=== PATIENT | male | born 1995 | race Two or more races ===

== ENCOUNTER 2024-08-09 02:49 | Emergency (ER) | payer MEDICAID, SELFPAY ==
[2024-08-09 02:56] VITALS: BMI 23.5
[2024-08-09 03:02] VITALS: BP 151/94; PULSE 87; RESP 19; TEMP 37.3; O2SAT 99
--- NOTE | 2024-08-09 03:11 | PD.EDADULT ---
ED General RME/HPI General Chief complaint: General Adult/Misc Complain Stated complaint: NOT FEELING GOOD Time Seen by Provider: 08/09/24 03:47 Arrival date/time: 08/09/24 02:49 RME / HPI RME / HPI narrative: Patient is 28 years old male with no significant past medical history presented to the ED complaining of spacing out . He reports that approximately at 2 AM today he was cleaning his room when he fell strange like spacing out. He cannot fully explain or describe what he feels. He felt he might pass out and decided to come to the ED waiting room so if he passed out he will pass out in the hospital and can get immediate help. He reports anxiety but no depression. He denies any dizziness, headache, change in vision or hearing, hallucinations, chest pain, fever or chills. He previously was seen in the ED due to numbness in his upper extremity which resolved by itself. He never had seizures before. He denies using illicit drugs, smoking tobacco or drinking alcohol. Related Data Home Medications ?Medication ?Instructions ?Recorded ?Confirmed No Known Home Medications 07/08/22 07/08/22 Allergies Allergy/AdvReac Type Severity Reaction Status Date / Time No Known Allergies Allergy Verified 04/21/23 18:05 Review of Systems Review of Systems Systems Reviewed: All systems reviewed, normal except as documented ED Exam Narrative Physical exam: Gen: Well-developed and well-nourished male. HEENT: NCAT, PERRLA, EOMI, MMM, anicteric conjunctivae. CVS: normal S1 and S2. RRR. No M/R/G. Resp: CTA B/L. No rhonchi, rales, crackles or wheezing. Abd: soft, non-tender, non-distended. BS+ in all 4 quadrants. MSK: Good ROM in BUE & BLE. No edema or rash. Neuro: CN II-XII grossly intact. Strength 5/5 in BUE & BLE. Alert and oriented x3. Psych: Appears anxious. Course Quality Measures none Orders Category Date Time Status CBC Stat Lab 08/09/24 03:33 Completed CMP [Comprehensive Metabolic Panel] Stat Lab 08/09/24 03:33 Completed Magnesium Stat Lab 08/09/24 03:33 Completed TSH [Thyroid Stimulating Hormone] Stat Lab 08/09/24 03:33 Completed Vital Signs Vital signs: Vital Signs Temperature 99.2 F 08/09/24 03:02 Pulse Rate 87 08/09/24 03:02 Respiratory Rate 19 08/09/24 03:02 Blood Pressure 151/94 H 08/09/24 03:02 Pulse Oximetry (%) 99 08/09/24 03:02 Oxygen Delivery Method Room Air 08/09/24 03:02 [facility] [place] Patient data External records reviewed:: [facility] previous records Clinical information provided by:: patient Social determinants that could affect healthcare access:: none Patient has the following chronic illnesses:: none How is presenting disease/condition affected by chronic disease/condition?: no chronic disease Evaluation data The following diagnostics were reviewed and interpreted by me:: lab results Lab and/or radiology exams considered but not ordered:: CT head Interpretation Summary: WNL Medications Medications considered but not ordered:: Meclizine, alprazolam Medication administrations:: none Consultations Consultation(s) initiated? (list below): No Diagnosis Differential Diagnosis ED Complaint MDM: anxiety, vertigo, CVA, absent seizure Most likely diagnosis given after review of the tests above:: Anxiety Admission Indicated Admission indicated?: not indicated Explain why admission is indicated or not indicated:: Work up is negative, recommended to establish PCP and follow up. Admission Request Was there a request for admission?: No Disposition Plan Disposition Plan: Discharge Discharge Attestation Discharge Attestation: The patient and all family members were given an opportunity to ask questions and understood the discharge instructions. Discharge instructions specifically effects, indications for sooner follow up or return to the emergency department, and the expected course of current diagnosis. Patient condition: Stable Medical Decision Making Differential Diagnosis Differential Diagnosis: anxiety, vertigo, CVA, absent seizure Lab Data 08/09/24 03:33 08/09/24 03:33 Labs: Lab Results 08/09/24 Range/Units 03:33 WBC 8.9 (3.8-10.6) Thou/mm3 RBC 5.35 (4.50-5.90) Miln/mm3 Hgb 15.7 (13.5-16.0) g/dL Hct 44.6 (41.0-53.0) % MCV 83 (80-100) fL MCH 29.3 (25.0-35.0) pg MCHC 35.2 (31.0-37.0) g/dl RDW Std Deviation 36.1 (35.1-43.9) fL Plt Count 250 (140-440) Thou/mm3 Neut % (Auto) 63 (37-80) % Lymph % (Auto) 26 (10-50) % [place] % (Auto) 8 (0-12) % Eos % (Auto) 2 (0-10) % Baso % (Auto) 1 (0-2.5) % Neut # (Auto) 5.6 (1.8-7.7) Thou/mm3 Lymph # (Auto) 2.3 (1.0-4.8) Thou/mm3 [place] # (Auto) 0.7 (0.0-0.8) Thou/mm3 Eos # (Auto) 0.2 (0.0-0.5) Thou/mm3 Baso # (Auto) 0.1 (0.0-0.2) Thou/mm3 Immature Gran # (Auto) 0.02 H (0.00-0.00) Thou/mm3 Absolute Nucleated RBC 0.00 (0.00-0.00) Thou/mm3 Immature Gran % 0 (0-0) % Nucleated RBC % 0 (0) /100 WBC Sodium 138 (136-145) mMol/L Potassium 3.5 (3.4-5.1) mMol/L Chloride 105 (98-107) mMol/L Carbon Dioxide 23.9 (20.0-31.0) mMol/L Anion Gap 9 (7-16) BUN 10 (9-23) mg/dL Creatinine 0.9 (0.6-1.3) mg/dL Estim Creat Clear Calc 116.3 (>60) mL/min eGFR > 60 (60 - ) See Note BUN/Creatinine Ratio 11 L (12-20) Ratio Glucose 96 (74-106) mg/dL Calculated Osmolality 274 L (275-295) Calcium 9.7 (8.3-10.6) mg/dL Corrected Calcium 9.7 (8.5-10.1) mg/dL Magnesium 2.2 (1.6-2.6) mg/dL Total Bilirubin 1.2 (0.3-1.2) mg/dL AST 17 (0-34) U/L ALT 15 (10-49) U/L Alkaline Phosphatase 82 (46-116) U/L Total Protein 7.8 (5.7-8.2) gm/dL Albumin 5.0 (3.5-5.0) gm/dL Globulin 2.8 (2.3-3.5) gm/dL Albumin/Globulin Ratio 1.8 (1.2-2.2) TSH 1.88 (0.55-4.78) uIU/mL Discharge Plan Plan Patient Disposition: HOME (Self Care) Patient condition on transfer: Stable Prescriptions/Referrals Prescriptions/Med Rec: No Action No Known Home Medications Referrals: No Primary/Family,Physician [Primary Care Provider] - In 1 week Problem List Clinical Impression: Anxiety Patient/Caregiver Discharge Instructions Education Materials: Exercise for a Healthier Heart, 5 Steps for Eating Healthier, ED Anxiety Reaction Additional Instructions: Recommendations after ER visit: -your work up is negative today. -recommended healthy diet and regular exercises. -establish primary care physician care and follow up. -If you don't have a PCP, you can make an appointment at the [facility]: [address] [place], [place] [id number] -return to the ED if symptoms recur or worsen. Print Language: Malay Stand Alone Forms: Kitty Award Info., Patient Portal Info Letter
[2024-08-09 04:01] LABS: Basophils # (Auto) 0.1 Thou/mm3 (0.0-0.2); Basophils % (Auto) 1 % (0-2.5); Eosinophils # (Auto) 0.2 Thou/mm3 (0.0-0.5); Eosinophils % (Auto) 2 % (0-10); Hematocrit 44.6 % (41.0-53.0); Hemoglobin 15.7 g/dL (13.5-16.0); Immature Granulocytes % (Auto) 0 % (0-0); Immature Granulocytes Auto 0.02 Thou/mm3 (0.00-0.00); Lymphocytes # (Auto) 2.3 Thou/mm3 (1.0-4.8); Lymphocytes % (Auto) 26 % (10-50); Mean Corpuscular HGB Conc 35.2 g/dl (31.0-37.0); Mean Corpuscular Hemoglobin 29.3 pg (25.0-35.0); Mean Corpuscular Volume 83 fL (80-100); Monocytes # (Auto) 0.7 Thou/mm3 (0.0-0.8); Monocytes % (Auto) 8 % (0-12); Neutrophils # (Auto) 5.6 Thou/mm3 (1.8-7.7); Neutrophils % (Auto) 63 % (37-80); Nucleated Red Blood Cell % 0 /100 WBC (0); Platelet Count 250 Thou/mm3 (140-440); RDW Standard Deviation 36.1 fL (35.1-43.9); Red Blood Count 5.35 Miln/mm3 (4.50-5.90); White Blood Count 8.9 Thou/mm3 (3.8-10.6)
[2024-08-09 04:19] LABS: Alanine Aminotransferase 15 U/L (10-49); Albumin/Globulin Ratio 1.8 (1.2-2.2); Alkaline Phosphatase 82 U/L (46-116); Anion Gap 9 (7-16); Aspartate Amino Transferase 17 U/L (0-34); BUN/Creatinine Ratio 11 Ratio (12-20); Bilirubin,Total 1.2 mg/dL (0.3-1.2); Blood Urea Nitrogen 10 mg/dL (9-23); Calcium 9.7 mg/dL (8.3-10.6); Calcium (Corrected) 9.7 mg/dL (8.5-10.1); Carbon Dioxide 23.9 mMol/L (20.0-31.0); Chloride 105 mMol/L (98-107); Creatinine (Component) 0.9 mg/dL (0.6-1.3); Estimated Creatinine Clearance 116.3 mL/min (>60); Globulin 2.8 gm/dL (2.3-3.5); Glucose 96 mg/dL (74-106); Magnesium 2.2 mg/dL (1.6-2.6); Osmolality,Calculated 274 (275-295); Potassium 3.5 mMol/L (3.4-5.1); Sodium 138 mMol/L (136-145); Thyroid Stimulating Hormone 1.88 uIU/mL (0.55-4.78); Total Protein 7.8 gm/dL (5.7-8.2); eGFR > 60 See Note
[2024-08-09 04:32] VITALS: RESP 18
== END 2024-08-09 04:35 | disposition home or self-care (01) ==
PROVIDERS: Emergency Provider Student in an Organized Health Care Education/Training Program
DX: F41.9 Anxiety disorder, unspecified (principal)
CPT/HCPCS: 36415; 80053; 83735; 84443; 85025; 99283

== ENCOUNTER 2024-08-12 21:59 | Emergency (ER) | payer MEDICAID, SELFPAY ==
[2024-08-12 22:45] VITALS: BP 122/64; PULSE 104; RESP 18; TEMP 36.8; O2SAT 98; BMI 24.4
[2024-08-13] MEDS: DIAZEPAM 5 MG TABLET 10 MG PO (00:07)
[2024-08-13 00:55] VITALS: RESP 18
--- NOTE | 2024-08-13 05:08 | PD.EDANX ---
ED Anxiety RME/HPI General Chief Complaint: General Adult/Misc Complain Stated Complaint: WEAK Time Seen by Provider: 08/12/24 23:58 Arrival date/time: 08/12/24 21:59 28M with history of anxiety presents to ED with several days of spacing out, and feeling mentally weak. Patient denies SI/HI. Patient was here several days ago with unremarkable blood work. Limitations: no limitations Related Data Home Medications ?Medication ?Instructions ?Recorded ?Confirmed No Known Home Medications 07/08/22 07/08/22 Allergies Allergy/AdvReac Type Severity Reaction Status Date / Time No Known Allergies Allergy Verified 08/13/24 04:02 Review of Systems Review of Systems Systems Reviewed: All systems reviewed, normal except as documented Constitutional Constitutional: Reports system reviewed and no additional complaints, except as documented, Denies fever(s) and Denies headache(s) ENT Ears, Nose, Mouth, and Throat: Denies disequilibrium and Denies headache(s) Cardiovascular Cardiovascular: Reports system reviewed and no additional complaints, except as documented, Denies chest pain and Denies dyspnea Respiratory Respiratory: Reports system reviewed and no additional complaints, except as documented, Denies cough and Denies dyspnea Gastrointestinal Gastrointestinal: Reports system reviewed and no additional complaints, except as documented, Denies abdominal pain, Denies nausea and Denies vomiting Neurologic Neurologic: Reports system reviewed and no additional complaints, except as documented, Denies confusion, Denies disequilibrium and Denies headache(s) Psychiatric Psychiatric: Reports as per HPI, Reports anxiety and Denies confusion Past Medical History Social History SMOKING STATUS: Never smoker SUBSTANCE USE: does not use ED Exam General Limitations: Present no limitations General appearance: Present alert, in no apparent distress and anxious Head Head exam: Present atraumatic Eye Eye exam: Present normal appearance, PERRL and EOMI ENT ENT exam: Present normal exam, normal oropharynx and mucous membranes moist Neck Neck exam: Present normal inspection, full ROM and trachea midline Chest Chest inspection: Present normal inspection and symmetric chest wall rise Respiratory Respiratory exam: Present normal lung sounds bilaterally Cardiovascular Cardiovascular exam: Present regular rate, normal rhythm and normal heart sounds Abdominal Exam Abdominal exam: Present soft and normal bowel sounds Extremities Exam Extremities exam: Present normal inspection and full ROM Back Exam Back exam: Present normal inspection and full ROM Neurological Exam Neurological exam: Present alert, oriented X3 and CN II-XII intact Psychiatric Psychiatric exam: Present normal affect and normal mood Skin Skin exam: Present warm, dry, intact and normal color Course Quality Measures none Orders Category Date Time Status Diazepam [Valium] Med 08/12/24 23:59 Discontinued 10 mg PO X1 ONE Vital Signs Vital signs: Vital Signs Temperature 98.2 F 08/12/24 22:45 Pulse Rate 104 H 08/12/24 22:45 Respiratory Rate 18 08/12/24 22:45 Blood Pressure 122/64 08/12/24 22:45 Pulse Oximetry (%) 98 08/12/24 22:45 Oxygen Delivery Method Room Air 08/12/24 22:45 Anxiety MDM Narrative MDM Narrative: 28M with history of anxiety presents to ED with several days of spacing out, and feeling mentally weak. Patient denies SI/HI. Patient was here several days ago with unremarkable blood work. Physical exam reveals normal pupil response and EOM. ENT and lungs clear. Patient is afebrile, alert, but anxious. Valium improved symptoms. Patient data External records reviewed:: [facility] previous records Clinical information provided by:: patient Social determinants that could affect healthcare access:: none Patient has the following chronic illnesses:: anxiety How is presenting disease/condition affected by chronic disease/condition?: caused by Evaluation data The following diagnostics were reviewed and interpreted by me:: other (specify) (none) Lab and/or radiology exams considered but not ordered:: not ordered Interpretation Summary: n/a Medications / Prescriptions Medications or Prescriptions considered but not ordered:: ordered Medication administrations:: Medication Administration History Discontinued Medications Diazepam (Diazepam 5 Mg Tablet) 10 mg PO X1 ONE Stop: 08/13/24 00:00 Last Admin: 08/13/24 00:07 Dose: 10 mg Documented By: CVL Consultations Consultation(s) initiated? (list below): No Diagnosis Differential diagnosis anxiety: hyperventilation, panic disorder and acute anxiety Most likely diagnosis given after review of the tests above:: anxiety Admission Indicated Admission indicated?: not indicated Admission Request Was there a request for admission?: No Disposition Plan Disposition Plan: Discharge Discharge Attestation Discharge Attestation: The patient and all family members were given an opportunity to ask questions and understood the discharge instructions. Discharge instructions specifically effects, indications for sooner follow up or return to the emergency department, and the expected course of current diagnosis. Patient condition: Stable Discharge Plan Plan Patient Disposition: HOME (Self Care) Disposition Comment: Stable Prescriptions/Referrals Prescriptions/Med Rec: No Action No Known Home Medications Referrals: No Primary/Family,Physician [Primary Care Provider] - In 1 week Problem List Clinical Impression: Anxiety Patient/Caregiver Discharge Instructions Education Materials: Your Body's Response to Anxiety, Anxiety Disorders Tx Therapy Additional Instructions: Please follow-up with PCP within 24-48 hours and return immediately if symptoms worsen. Print Language: Ecuadorean Stand Alone Forms: Patient Portal Info Letter MEGHAN/KAILEE Supervising Physician MEGHAN/KAILEE Supervising Physician: Dr. Ortega
== END 2024-08-13 00:56 | disposition home or self-care (01) ==
PROVIDERS: Emergency Provider Emergency Medicine
DX: F41.9 Anxiety disorder, unspecified (principal)
CPT/HCPCS: 99282; A9270

== ENCOUNTER 2024-08-13 03:45 | Emergency (ER) | payer MEDICAID, SELFPAY ==
[2024-08-13 03:53] VITALS: BP 139/96; PULSE 99; RESP 18; TEMP 37; O2SAT 98
--- NOTE | 2024-08-13 04:18 | XR_ITS ---
EXAMINATION: CT head/brain wo con ORDERING PROVIDER: Sean Pedraza PA-C HISTORY: Confusion and weakness x3 days TECHNIQUE: CT scanner was used in the volumetric, helical non-contrast acquisition of the head with 2-D and 3-D reformats created on a separate workstation and submitted for interpretation. Institutional dose reducing protocols were utilized. RADIATION DOSE: DLP 967 mGy-cm COMPARISON: 04/21/2023, noncontrast head CT. FINDINGS: BRAIN: No acute intracranial hemorrhage, mass effect, or midline shift. [place]-WHITE DIFFERENTIATION: Preserved. EXTRA-AXIAL SPACES: No abnormal collection. SULCI: Normal. VENTRICLES: Normal. BASAL CISTERNS: Normal. VESSELS: No hyperdense vessel sign. DURAL VENOUS SINUSES: Symmetric attenuation. POSTERIOR FOSSA: Normal. MASTOID AIR CELLS: Clear. PARANASAL SINUSES: Clear. ORBITS: Normal. BONES: Normal. SCALP: Normal. IMPRESSION: No acute intracranial findings. Teleradiology preliminary reported at 5:18 AM 08/13/2024.
--- NOTE | 2024-08-13 04:20 | EDRME_ITS ---
Rapid Medical Screening Exam [facility] Arrival date/time: 08/13/24 03:45 28M with history of anxiety presents to ED with some dizziness and confusion. Patient was here earlier and Valium improved symptoms, but on repeat exam, pupils are unequal. Chief Complaint: General Adult/Misc Complain Vital signs: Vital Signs Temperature 98.6 F 08/13/24 03:53 Pulse Rate 99 08/13/24 03:53 Respiratory Rate 18 08/13/24 03:53 Blood Pressure 139/96 H 08/13/24 03:53 Pulse Oximetry (%) 98 08/13/24 03:53 Oxygen Delivery Method Room Air 08/13/24 03:53
--- NOTE | 2024-08-13 05:18 | PRELIM_ITS ---
CT scan of the head without intravenous contrast (axial sections with sagittal and coronal reformats). August 13, 2024 at 0450 hours Clinical History: Confusion. Comparison: None. Findings: No evidence of intracranial hemorrhage, mass effect or midline shift. The ventricles and CSF spaces are unremarkable. The calvarium is unremarkable. The mastoid air cells and the visualized paranasal sinuses are clear. Impression: No evidence of intracranial hemorrhage, mass effect or midline shift. Aspect score 10. Report Electronically Signed By: Charlie Turner 08/13/2024 5:18:26 AM [EST]
[2024-08-13 05:42] LABS: Collection Type, Urine Clean Catch; Squamous Epithelial Cell,Urine 0 /hpf (0-5)
[2024-08-13 06:00] LABS: Bilirubin,Urine Negative (Negative); Blood,Urine Negative (Negative); Clarity,Urine Clear (Clear/Hazy); Color,Urine Lt-Yellow (Lt Yel-Yel); Glucose, Urine Negative (Negative); Ketones,Urine Trace (Negative); Leukocyte Esterase,Urine Negative (Negative); Nitrite,Urine Negative (Negative); PH,Urine 6.5 (5.0-7.0); Protein,Urine Negative (Neg - Trace); RBC,Urine 3 /hpf (0-3); Specific Gravity,Urine 1.013 (1.001-1.035); Urobilinogen,Urine Negative mg/dL (0.0-1.0); WBC,Urine 1 /hpf (0-5)
[2024-08-13 06:26] LABS: Amphetamine/Methamp Scrn,U Negative (Negative); Barbiturate Screen,Urine Negative (Negative); Benzodiazepines Screen,Urine Positive (Negative); Benzoylecgonine Screen, Ur Negative (Negative); Fentanyl Screen,Urine Negative (Negative); Opiate Screen,Urine Negative (Negative); THC Screen,Urine Negative (Negative)
[2024-08-13 06:41] VITALS: BP 144/86; PULSE 100; RESP 20; TEMP 36.8; O2SAT 96
--- NOTE | 2024-08-13 06:43 | PD.EDADULT ---
ED General RME/HPI General Chief complaint: General Adult/Misc Complain Stated complaint: NOT FEELING GOOD Time Seen by Provider: 08/13/24 06:11 Source: patient Arrival date/time: 08/13/24 03:45 28-year-old male with no known medical history presents to the emergency room with a chief complaint of dizziness, confusion x 2 days Mode of arrival: ambulatory Limitations: no limitations RME / HPI RME / HPI narrative: 08/13/24 03:45 28M with history of anxiety presents to ED with some dizziness and confusion. Patient was here earlier and Valium improved symptoms, but on repeat exam, pupils are unequal. Related Data Home Medications ?Medication ?Instructions ?Recorded ?Confirmed No Known Home Medications 07/08/22 07/08/22 Allergies Allergy/AdvReac Type Severity Reaction Status Date / Time No Known Allergies Allergy Verified 08/13/24 04:02 Review of Systems Review of Systems Systems Reviewed: All systems reviewed, normal except as documented Constitutional Constitutional: Reports system reviewed and no additional complaints, except as documented, Denies fatigue, Denies fever(s), Denies headache(s) and Denies weakness Eyes Eyes: Reports system reviewed and no additional complaints, except as documented, Denies blurry vision and Denies change in vision ENT Ears, Nose, Mouth, and Throat: Reports system reviewed and no additional complaints, except as documented, Denies otalgia, Denies headache(s), Denies nasal congestion, Denies throat swelling and Denies vertigo Cardiovascular Cardiovascular: Reports system reviewed and no additional complaints, except as documented, Denies chest pain, Denies dyspnea and Denies dyspnea on exertion Respiratory Respiratory: Reports system reviewed and no additional complaints, except as documented, Denies chest congestion, Denies cough, Denies dyspnea, Denies dyspnea on exertion and Denies wheezing Gastrointestinal Gastrointestinal: Reports system reviewed and no additional complaints, except as documented, Denies abdominal pain, Denies cramping, Denies nausea and Denies vomiting Genitourinary Genitourinary: Reports system reviewed and no additional complaints, except as documented, Denies dysuria and Denies hematuria Musculoskeletal Musculoskeletal: Reports system reviewed and no additional complaints, except as documented and Denies back pain Integumentary/Breasts Skin/Breast: Reports system reviewed and no additional complaints, except as documented and Denies wounds Neurologic Neurologic: Reports system reviewed and no additional complaints, except as documented, Denies confusion, Denies headache(s), Denies lack of coordination, Denies vertigo and Denies weakness Psychiatric Psychiatric: Reports system reviewed and no additional complaints, except as documented, Denies anxiety, Denies confusion, Denies depression, Denies paranoia, Denies suicidal ideation and Denies tactile hallucinations Endocrine Endocrine: Reports system reviewed and no additional complaints, except as documented and Denies fatigue Hematologic/Lymphatic Hematologic/Lymphatic: Reports system reviewed and no additional complaints, except as documented and Denies lymphadenopathy Allergic/Immunologic Allergic/Immunologic: Reports system reviewed and no additional complaints, except as documented, Denies throat swelling, Denies urticaria and Denies wheezing Past Medical History Social History SMOKING STATUS: Never smoker SUBSTANCE USE: does not use ED Exam General Limitations: Present no limitations General appearance: Present alert and in no apparent distress; Absent appears intoxicated, anxious, lethargic, obtunded or in distress Head Head exam: Present atraumatic, normocephalic and normal inspection Eye Eye exam: Present normal appearance, PERRL and EOMI ENT ENT exam: Present normal exam, normal oropharynx and mucous membranes moist Neck Neck exam: Present normal inspection, full ROM and trachea midline Chest Chest inspection: Present normal inspection and symmetric chest wall rise Respiratory Respiratory exam: Present normal lung sounds bilaterally Cardiovascular Cardiovascular exam: Present regular rate, normal rhythm and normal heart sounds Abdominal Exam Abdominal exam: Present soft and normal bowel sounds Extremities Exam Extremities exam: Present normal inspection and full ROM Back Exam Back exam: Present normal inspection and full ROM Neurological Exam Neurological exam: Present alert, oriented X3, CN II-XII intact, normal gait and reflexes normal Expanded Neurological Exam Patient oriented to: Present person, place and time Speech: Present fluid speech Cranial nerves: Normal: EOM function (II, III, IV, ), facial sensation (V) and facial palsy (VII) Cerebellar function: Present normal gait Motor strength - LUE: 5/5 Motor strength - RUE: 5/5 Motor strength - LLE: 5/5 Motor strength - RLE: 5/5 Coma scale eye opening: spontaneous Coma scale motor response: obeys commands Coma scale verbal response: oriented Coma scale total: 15 Psychiatric Psychiatric exam: Present normal affect and normal mood Skin Skin exam: Present warm, dry, intact and normal color Course Quality Measures none Orders Category Date Time Status CT head/brain wo con Stat Exams 08/13/24 04:18 Taken Drug Screen,Urine Stat Lab 08/13/24 05:30 Completed Urinalysis Stat Lab 08/13/24 05:30 Completed Vital Signs Vital signs: Vital Signs Temperature 98.6 F 08/13/24 03:53 Pulse Rate 99 08/13/24 03:53 Respiratory Rate 18 08/13/24 03:53 Blood Pressure 139/96 H 08/13/24 03:53 Pulse Oximetry (%) 98 08/13/24 03:53 Oxygen Delivery Method Room Air 08/13/24 03:53 MDM Patient data External records reviewed:: [facility] previous records Clinical information provided by:: patient Social determinants that could affect healthcare access:: none Patient has the following chronic illnesses:: No chronic illness How is presenting disease/condition affected by chronic disease/condition?: no chronic disease Evaluation data The following diagnostics were reviewed and interpreted by me:: lab results and radiology exam(s) Lab and/or radiology exams considered but not ordered:: Labs and radiology exams considered and ordered Interpretation Summary: CT of the head and brain-Findings: No evidence of intracranial hemorrhage, mass effect or midline shift. The ventricles and CSF spaces are unremarkable. The calvarium is unremarkable. The mastoid air cells and the visualized paranasal sinuses are clear. Impression: No evidence of intracranial hemorrhage, mass effect or midline shift. Aspect score 10. Medications Medications considered but not ordered:: No medication given Medication administrations:: No medication given Consultations Consultation(s) initiated? (list below): No Diagnosis Differential Diagnosis ED Complaint MDM: Anxiety/head bleed/head mass Most likely diagnosis given after review of the tests above:: Acute anxiety Admission Indicated Admission indicated?: not indicated Explain why admission is indicated or not indicated:: N/A Admission Request Was there a request for admission?: No Disposition Plan Disposition Plan: Discharge Discharge Attestation Discharge Attestation: The patient and all family members were given an opportunity to ask questions and understood the discharge instructions. Discharge instructions specifically effects, indications for sooner follow up or return to the emergency department, and the expected course of current diagnosis. Patient condition: Stable Medical Decision Making MDM Narrative MDM Narrative: 28-year-old male with no known medical history presents to the emergency room with a chief complaint of dizziness, confusion x 2 days Patient is hemodynamically stable and in no apparent distress. Physical examination shows a normal neurological exam. Patient is a GCS of 15 he is alert and oriented x 3. Pupils are PERRLA. EOMs are intact. Patient has a normal steady gait while walking into the room for reevaluation. Patient states his symptoms have improved and he feels a lot better. CT scan of the head and brain was completed and was negative for any acute findings Patient was discharged and educated to follow-up with primary care provider in the next 24 to 48 hours and return to the emergency room for any evidence of worsening signs or symptoms Differential Diagnosis Differential Diagnosis: Anxiety/head bleed/head mass Lab Data Labs: Lab Results 08/13/24 Range/Units 05:30 Ur Collection Type Clean Catch Urine Color Lt-Yellow (Lt Yel-Yel) Urine Clarity Clear (Clear/Hazy) Urine pH 6.5 (5.0-7.0) Ur Specific [place] 1.013 (1.001-1.035) Urine Protein Negative (Neg - Trace) Urine Glucose (UA) Negative (Negative) Urine Ketones Trace (Negative) Urine Blood Negative (Negative) Urine Nitrite Negative (Negative) Urine Bilirubin Negative (Negative) Urine Urobilinogen (Auto) Negative (0.0-1.0) mg/dL Ur Leukocyte Esterase Negative (Negative) Urine RBC 3 (0-3) /hpf Urine WBC 1 (0-5) /hpf Ur Squamous Epith Cells 0 (0-5) /hpf Urine Bacteria None (None) Urine Opiates Screen Negative (Negative) Urine Fentanyl Screen Negative (Negative) Ur Barbiturates Screen Negative (Negative) U Amphetamin/Meth Scrn Negative (Negative) U Benzodiazepines Scrn Positive A (Negative) U Cocaine Metab Screen Negative (Negative) U Marijuana (THC) Screen Negative (Negative) Discharge Plan Plan Patient Disposition: HOME (Self Care) Disposition Comment: Stable Prescriptions/Referrals Prescriptions/Med Rec: No Action No Known Home Medications Referrals: No Primary/Family,Physician [Primary Care Provider] - In 1 week Problem List Clinical Impression: Anxiety Patient/Caregiver Discharge Instructions Education Materials: ED Anxiety Reaction Additional Instructions: Please follow-up with your primary care provider in the next [address] scan of your head and brain was completed and was negative for any acute findings Urinalysis was negative for any acute findings For any evidence of worsening signs or symptoms return to the emergency room immediately Print Language: Lao Stand Alone Forms: Kitty Glover Info., Patient Portal Info Letter PA/NATURAL RESOURCE SPECIALIST Supervising Physician PA/NATURAL RESOURCE SPECIALIST Supervising Physician: Dr. GRAY
[2024-08-13 06:47] VITALS: RESP 18
== END 2024-08-13 06:48 | disposition home or self-care (01) ==
PROVIDERS: Physician Assistant; Emergency Provider Emergency Medicine
DX: F41.9 Anxiety disorder, unspecified (principal); R41.0 Disorientation, unspecified; R53.1 Weakness
CPT/HCPCS: 70450; 80307; 81001; 99284

== ENCOUNTER 2024-09-09 21:09 | Emergency (ER) | payer MEDICAID, SELFPAY ==
[2024-09-09 21:10] VITALS: BMI 22.8
--- NOTE | 2024-09-09 21:14 | EKG_ITS ---
[facility] Test Date: 2024-09-09 Pat Name: EB DICKSON Department: Room: - Gender: Male [employer] Instructor: : 1995 Requested By: ED Temporary Provider Order Number: [id number] Reading MD: ED Temporary Provider Measurements Intervals [place] Rate: 98 P: 34 [place]: 142 QRS: 4 QRSD: 88 T: 31 QT: 316 QTc: 405 Interpretive Statements SINUS RHYTHM No previous ECG available for comparison /store/S0/[id number]/ecg/[id number].pdf
[2024-09-09 21:24] VITALS: BP 123/81; PULSE 100; RESP 19; TEMP 36.8; O2SAT 97
--- NOTE | 2024-09-09 21:51 | PD.EDWEAK ---
ED Weakness RME/HPI General Chief complaint: Weakness Stated complaint: WEAK, NAUSEA, PALPITATIONS Time Seen by Provider: 09/09/24 21:28 Arrival date/time: 09/09/24 21:09 RME / HPI RME / HPI Narrative: This section includes all my notes and documentations, including HPI, PE, and ED course. Avery Miranda MD HPI: 29-year-old male here to be evaluated with a couple week history of generalized weakness and malaise and fatigue. No fever or chills. No cough or congestion. No body aches. No sore throat. No headache or dizziness. No vomiting or diarrhea. Eating normally. No speech or visual impairment. No chest pain or shortness of breath. No other complaints. ROS: All negative except as documented in HPI. Physical Exam: General: Alert and oriented. No acute distress. Eyes: Conjunctivae and lids clear. EOMI. PERRL. ENT: No nasal congestion. Pharynx normal. Tympanic membrane normal bilaterally. Neck: Supple. No lymphadenopathy. No JVD. Heart: RRR. Lungs: No respiratory distress. Good air movement. No rhonchi, wheezing, rales. Chest: No tenderness. Abdomen: Soft and nontender. Normal bowel sounds. No distension. No rebound or guarding. Back: No CVA tenderness. Legs: No clubbing, cyanosis, edema. Skin: Warm and dry. Neuro: Alert and oriented X 3. Cranial Nerves II-XII grossly intact. No peripheral motor deficits. I reviewed all diagnostic test results. My interpretation of the EKG is sinus rhythm with no acute ST?T changes. Blood tests and urine tests unremarkable. At this point, diagnoses include generalized weakness of unclear etiology. Recommended more outpatient workup. Based on my best medical judgment, made decision no further evaluation or treatment indicated at this time. Patient understands and agrees to the discharge instructions customized and printed, see below. Discharge Instructions from Dr. Miranda printed for you: 1. After extensive evaluation, exact cause of your generalized weakness was not determined. But there is no immediately life-threatening condition, such as heart attack. 2. See a private doctor on 09/11/24 for recheck and further care. Ask for help finding the cause and treatment of your generalized weakness. With more care investigation (including referrals to see specialists) and tests not available here in the ER. 3. Seek immediate medical care with worsening or with any concerns. Avery Miranda MD Related Data Home Medications ?Medication ?Instructions ?Recorded ?Confirmed No Known Home Medications 07/08/22 07/08/22 Allergies Allergy/AdvReac Type Severity Reaction Status Date / Time No Known Allergies Allergy Verified 09/09/24 21:10 Course Quality Measures none Orders Category Date Time Status EKG (ED ONLY) *Do not use* NOW Care 09/09/24 21:14 Completed EKG (ED Only) Stat Exams 09/09/24 21:14 Draft Alcohol, Blood Medical Stat Lab 09/09/24 22:12 Completed CBC Stat Lab 09/09/24 22:12 Completed CMP [Comprehensive Metabolic Panel] Stat Lab 09/09/24 22:12 Completed CRP [C-Reactive Protein] Stat Lab 09/09/24 22:12 Completed Drug Screen,Urine Stat Lab 09/09/24 23:21 Completed ESR [Sed Rate (ESR)] Stat Lab 09/09/24 22:12 Completed Free T4 (Free Thyroxine) Stat Lab 09/09/24 22:12 Completed Magnesium Stat Lab 09/09/24 22:12 Completed Procalcitonin Stat Lab 09/09/24 22:12 Completed TSH [Thyroid Stimulating Hormone] Stat Lab 09/09/24 22:12 Completed Troponin I Stat Lab 09/09/24 22:12 Completed UA, C/S IF [Urinalysis, C/S if Indicated] Stat Lab 09/09/24 23:21 Completed Vital Signs Vital signs: Vital Signs Temperature 98.3 F 09/09/24 21:24 Pulse Rate 100 09/09/24 21:24 Respiratory Rate 19 09/09/24 21:24 Blood Pressure 123/81 09/09/24 21:24 Pulse Oximetry (%) 97 09/09/24 21:24 Oxygen Delivery Method Room Air 09/09/24 21:24 Weakness Patient data External records reviewed:: [facility] previous records Clinical information provided by:: patient Social determinants that could affect healthcare access:: none Patient has the following chronic illnesses:: Anxiety How is presenting disease/condition affected by chronic disease/condition?: exacerbated by Evaluation data The following diagnostics were reviewed and interpreted by me:: lab results and EKG tracing(s) Lab and/or radiology exams considered but not ordered:: None Interpretation Summary: Normal diagnostics Medications / Prescriptions Medications or Prescriptions considered but not ordered:: None Medication administrations:: None Consultations Consultation(s) initiated? (list below): No Diagnosis Weakness Differential Diagnosis: acute myocardial infarction, anemia, hypoglycemia, hypothyroidism, rhabdomyolysis, sepsis and dehydration Most likely diagnosis given after review of the tests above:: Generalized weakness of unclear allergy. Admission Indicated Admission indicated?: not indicated Explain why admission is indicated or not indicated:: There was no indication for admission. Admission Request Was there a request for admission?: No Disposition Plan Disposition Plan: Discharge Discharge Attestation Discharge Attestation: The patient and all family members were given an opportunity to ask questions and understood the discharge instructions. Discharge instructions specifically effects, indications for sooner follow up or return to the emergency department, and the expected course of current diagnosis. Patient condition: Stable Discharge Plan Plan Patient Disposition: HOME (Self Care) Prescriptions/Referrals Prescriptions/Med Rec: No Action No Known Home Medications Referrals: No Primary/Family,Physician [Primary Care Provider] - In 1 week Problem List Clinical Impression: General weakness Patient/Caregiver Discharge Instructions Discharge Activity: activity as tolerated Education Materials: ED Weakness (Uncertain Cause) Additional Instructions: Discharge Instructions from Dr. Miranda printed for you: 1. After extensive evaluation, exact cause of your generalized weakness was not determined. But there is no immediately life-threatening condition, such as heart attack. 2. See a private doctor on 09/11/24 for recheck and further care. Ask for help finding the cause and treatment of your generalized weakness. With more care investigation (including referrals to see specialists) and tests not available here in the ER. 3. Seek immediate medical care with worsening or with any concerns. Print Language: Bulgarian Stand Alone Forms: Kitty Award Info., Patient Portal Info Letter
[2024-09-09 22:23] LABS: Basophils # (Auto) 0.1 Thou/mm3 (0.0-0.2); Basophils % (Auto) 1 % (0-2.5); Eosinophils # (Auto) 0.1 Thou/mm3 (0.0-0.5); Eosinophils % (Auto) 1 % (0-10); Hematocrit 43.3 % (41.0-53.0); Hemoglobin 15.2 g/dL (13.5-16.0); Immature Granulocytes % (Auto) 0 % (0-0); Immature Granulocytes Auto 0.03 Thou/mm3 (0.00-0.00); Lymphocytes # (Auto) 1.4 Thou/mm3 (1.0-4.8); Lymphocytes % (Auto) 13 % (10-50); Mean Corpuscular HGB Conc 35.1 g/dl (31.0-37.0); Mean Corpuscular Hemoglobin 29.1 pg (25.0-35.0); Mean Corpuscular Volume 83 fL (80-100); Monocytes # (Auto) 0.7 Thou/mm3 (0.0-0.8); Monocytes % (Auto) 6 % (0-12); Neutrophils # (Auto) 8.7 Thou/mm3 (1.8-7.7); Neutrophils % (Auto) 79 % (37-80); Nucleated Red Blood Cell % 0 /100 WBC (0); Platelet Count 275 Thou/mm3 (140-440); RDW Standard Deviation 37.2 fL (35.1-43.9); Red Blood Count 5.22 Miln/mm3 (4.50-5.90)
[2024-09-09 22:37] LABS: Sed Rate (ESR) 6 mm/hr (0-15)
[2024-09-09 23:01] LABS: Alanine Aminotransferase 36 U/L (10-49); Albumin, Serum 5.1 gm/dL (3.5-5.0); Albumin/Globulin Ratio 1.9 (1.2-2.2); Alcohol, Blood Medical < 3.0 mg/dL (0-10.0); Alkaline Phosphatase 86 U/L (46-116); Anion Gap 9 (7-16); Aspartate Amino Transferase 22 U/L (0-34); BUN/Creatinine Ratio 11 Ratio (12-20); Bilirubin,Total 0.8 mg/dL (0.3-1.2); Blood Urea Nitrogen 11 mg/dL (9-23); Carbon Dioxide 24.9 mMol/L (20.0-31.0); Chloride 105 mMol/L (98-107); Estimated Creatinine Clearance 107.7 mL/min (>60); Globulin 2.7 gm/dL (2.3-3.5); Glucose 123 mg/dL (74-106); Magnesium 2.2 mg/dL (1.6-2.6); Osmolality,Calculated 277 (275-295); Potassium 3.8 mMol/L (3.4-5.1); Procalcitonin 0.06 ng/ml (0.0-0.49); Sodium 139 mMol/L (136-145); Thyroid Stimulating Hormone 1.74 uIU/mL (0.55-4.78); Total Protein 7.8 gm/dL (5.7-8.2); Troponin I < 0.002 ng/mL (0.0-0.045); eGFR > 60 See Note
[2024-09-09 23:25] LABS: C-Reactive Protein < 0.5 mg/dL (0.0-0.9)
[2024-09-09 23:33] LABS: Collection Type, Urine Clean Catch; Squamous Epithelial Cell,Urine 0 /hpf (0-5); WBC,Urine 0 /hpf (0-5)
[2024-09-09 23:41] LABS: Bilirubin,Urine Negative (Negative); Blood,Urine Negative (Negative); Clarity,Urine Clear (Clear/Hazy); Color,Urine Colorless (Lt Yel-Yel); Culture Indicated,Urine Not Indicated; Glucose, Urine Negative (Negative); Ketones,Urine Negative (Negative); Leukocyte Esterase,Urine Negative (Negative); Nitrite,Urine Negative (Negative); Protein,Urine Negative (Neg - Trace); RBC,Urine < 1 /hpf (0-3); Specific Gravity,Urine 1.003 (1.001-1.035); Urobilinogen,Urine Negative mg/dL (0.0-1.0)
[2024-09-10 00:15] VITALS: BP 130/81; PULSE 92; RESP 17; TEMP 37.1; O2SAT 99
[2024-09-10 00:25] LABS: Amphetamine/Methamp Scrn,U Negative (Negative); Barbiturate Screen,Urine Negative (Negative); Benzodiazepines Screen,Urine Negative (Negative); Benzoylecgonine Screen, Ur Negative (Negative); Fentanyl Screen,Urine Negative (Negative); Opiate Screen,Urine Negative (Negative); THC Screen,Urine Negative (Negative)
== END 2024-09-10 00:39 | disposition home or self-care (01) ==
PROVIDERS: Emergency Provider Emergency Medicine
DX: R53.1 Weakness (principal); R11.0 Nausea; R00.2 Palpitations
CPT/HCPCS: 36415; 80053; 80307; 80320; 81001; 83735; 84145; 84439; 84443; 84484; 85025; 85652; 86140; 93005; 99283; G0480

== ENCOUNTER 2024-09-19 21:19 | Emergency (ER) | payer MEDICAID, SELFPAY ==
[2024-09-19 21:21] VITALS: BMI 22.8
[2024-09-19 21:42] VITALS: BP 139/91; PULSE 106; RESP 20; TEMP 37.4; O2SAT 98
[2024-09-19] MEDS: DIAZEPAM 5 MG TABLET 10 MG PO (22:37)
--- NOTE | 2024-09-19 22:44 | PD.EDANX ---
ED Anxiety RME/HPI General Chief Complaint: General Adult/Misc Complain Stated Complaint: BODY TINGLING Time Seen by Provider: 09/19/24 22:14 Arrival date/time: 09/19/24 21:19 29M with history of likely undiagnosed psych presents to ED with 1 day of generalized body/skin tingling. Patient recently was here and had a large benign work-up. Patient also had an unremarkable head CT 2 months ago. Limitations: no limitations Related Data Home Medications ?Medication ?Instructions ?Recorded ?Confirmed No Known Home Medications 07/08/22 07/08/22 Allergies Allergy/AdvReac Type Severity Reaction Status Date / Time No Known Allergies Allergy Verified 09/09/24 21:10 Review of Systems Review of Systems Systems Reviewed: All systems reviewed, normal except as documented Constitutional Constitutional: Reports system reviewed and no additional complaints, except as documented, Denies fever(s) and Denies headache(s) ENT Ears, Nose, Mouth, and Throat: Denies disequilibrium and Denies headache(s) Cardiovascular Cardiovascular: Reports system reviewed and no additional complaints, except as documented, Denies chest pain and Denies dyspnea Respiratory Respiratory: Reports system reviewed and no additional complaints, except as documented, Denies cough and Denies dyspnea Gastrointestinal Gastrointestinal: Reports system reviewed and no additional complaints, except as documented, Denies abdominal pain, Denies nausea and Denies vomiting Musculoskeletal Musculoskeletal: Reports tingling Neurologic Neurologic: Reports system reviewed and no additional complaints, except as documented, Reports as per HPI, Denies confusion, Denies disequilibrium, Denies headache(s) and Reports tingling Psychiatric Psychiatric: Denies confusion Past Medical History Social History SMOKING STATUS: Never smoker SUBSTANCE USE: does not use ED Exam General Limitations: Present no limitations General appearance: Present alert, in no apparent distress and anxious Head Head exam: Present atraumatic Eye Eye exam: Present normal appearance, PERRL and EOMI ENT ENT exam: Present normal exam, normal oropharynx and mucous membranes moist Neck Neck exam: Present normal inspection, full ROM and trachea midline Chest Chest inspection: Present normal inspection and symmetric chest wall rise Respiratory Respiratory exam: Present normal lung sounds bilaterally Cardiovascular Cardiovascular exam: Present regular rate, normal rhythm and normal heart sounds Abdominal Exam Abdominal exam: Present soft and normal bowel sounds Extremities Exam Extremities exam: Present normal inspection and full ROM Back Exam Back exam: Present normal inspection and full ROM Neurological Exam Neurological exam: Present alert, oriented X3 and CN II-XII intact Psychiatric Psychiatric exam: Present normal affect and normal mood Skin Skin exam: Present warm, dry, intact and normal color Course Quality Measures none Orders Category Date Time Status Bedside Influenza A&B Antigen Test NOW Care 09/19/24 21:45 Completed CBC Stat Lab 09/19/24 22:18 Ordered CMP [Comprehensive Metabolic Panel] Stat Lab 09/19/24 22:18 Ordered Lactate (Lactic Acid) Stat Lab 09/19/24 22:18 Ordered Procalcitonin Stat Lab 09/19/24 22:18 Ordered Syphilis Stat Lab 09/19/24 Ordered Diazepam [Valium] Med 09/19/24 22:21 Discontinued 10 mg PO X1 ONE Vital Signs Vital signs: Vital Signs Temperature 99.3 F 09/19/24 21:42 Pulse Rate 106 H 09/19/24 21:42 Respiratory Rate 20 09/19/24 21:42 Blood Pressure 139/91 H 09/19/24 21:42 Pulse Oximetry (%) 98 09/19/24 21:42 Oxygen Delivery Method Room Air 09/19/24 21:42 Anxiety MDM Narrative MDM Narrative: 29M with history of likely undiagnosed psych presents to ED with 1 day of generalized body/skin tingling. Patient recently was here and had a large benign work-up. Patient also had an unremarkable head CT 2 months ago. Physical exam reveals normal pupil response and EOM. CN II-XII grossly intact. Gait normal, though patient is pacing a lot. Patient is afebrile, alert, but anxious. Minimal leukocytosis. CMP unremarkable. Procal/lactate normal. Syphillis neg. Valium improved symptoms. Bowling Alley Operator given. Patient data External records reviewed:: [facility] previous records Clinical information provided by:: patient Social determinants that could affect healthcare access:: mental health Patient has the following chronic illnesses:: psych How is presenting disease/condition affected by chronic disease/condition?: caused by Evaluation data The following diagnostics were reviewed and interpreted by me:: lab results Lab and/or radiology exams considered but not ordered:: ordered Interpretation Summary: above Medications / Prescriptions Medications or Prescriptions considered but not ordered:: ordered Medication administrations:: Medication Administration History Discontinued Medications Diazepam (Diazepam 5 Mg Tablet) 10 mg PO X1 ONE Stop: 09/19/24 22:22 Last Admin: 09/19/24 22:37 Dose: 10 mg Documented By: PINOR Consultations Consultation(s) initiated? (list below): No Diagnosis Differential diagnosis anxiety: hyperventilation, panic disorder and acute anxiety Most likely diagnosis given after review of the tests above:: anxiety Admission Indicated Admission indicated?: not indicated Admission Request Was there a request for admission?: No Disposition Plan Disposition Plan: Discharge Discharge Attestation Discharge Attestation: The patient and all family members were given an opportunity to ask questions and understood the discharge instructions. Discharge instructions specifically effects, indications for sooner follow up or return to the emergency department, and the expected course of current diagnosis. Patient condition: Stable Discharge Plan Plan Patient Disposition: HOME (Self Care) Disposition Comment: Stable Prescriptions/Referrals Prescriptions/Med Rec: No Action No Known Home Medications Referrals: No Primary/Family,Physician [Primary Care Provider] - In 1 week Problem List Clinical Impression: Anxiety Patient/Caregiver Discharge Instructions Education Materials: Your Body's Response to Anxiety Additional Instructions: Please follow-up with PCP within 24-48 hours and return immediately if symptoms worsen. Recommend seeing PCP for additional evaluation/treatment including possible referral to psych/counseling/neuro. Print Language: Serbian Stand Alone Forms: Patient Portal Info Letter MEGHAN/KAILEE Supervising Physician MEGHAN/KAILEE Supervising Physician: Dr. Miranda
[2024-09-19 23:00] LABS: Lactate (Lactic Acid) 1.3 mMol/L (0.4-2.0)
[2024-09-19 23:12] LABS: Basophils # (Auto) 0.1 Thou/mm3 (0.0-0.2); Basophils % (Auto) 1 % (0-2.5); Eosinophils # (Auto) 0.1 Thou/mm3 (0.0-0.5); Eosinophils % (Auto) 1 % (0-10); Hematocrit 45.1 % (41.0-53.0); Hemoglobin 15.6 g/dL (13.5-16.0); Immature Granulocytes % (Auto) 0 % (0-0); Immature Granulocytes Auto 0.06 Thou/mm3 (0.00-0.00); Lymphocytes # (Auto) 1.4 Thou/mm3 (1.0-4.8); Lymphocytes % (Auto) 11 % (10-50); Mean Corpuscular HGB Conc 34.6 g/dl (31.0-37.0); Mean Corpuscular Hemoglobin 28.9 pg (25.0-35.0); Mean Corpuscular Volume 84 fL (80-100); Monocytes # (Auto) 0.9 Thou/mm3 (0.0-0.8); Monocytes % (Auto) 7 % (0-12); Neutrophils # (Auto) 10.9 Thou/mm3 (1.8-7.7); Neutrophils % (Auto) 81 % (37-80); Nucleated Red Blood Cell % 0 /100 WBC (0); Platelet Count 274 Thou/mm3 (140-440); RDW Standard Deviation 37.8 fL (35.1-43.9); White Blood Count 13.5 Thou/mm3 (3.8-10.6)
[2024-09-19 23:29] LABS: Carbon Dioxide 25.4 mMol/L (20.0-31.0); Chloride 106 mMol/L (98-107); Potassium 4.2 mMol/L (3.4-5.1); Sodium 139 mMol/L (136-145)
[2024-09-19 23:30] LABS: Alanine Aminotransferase 28 U/L (10-49); Albumin, Serum 4.9 gm/dL (3.5-5.0); Albumin/Globulin Ratio 1.8 (1.2-2.2); Alkaline Phosphatase 89 U/L (46-116); Anion Gap 8 (7-16); Aspartate Amino Transferase 22 U/L (0-34); BUN/Creatinine Ratio 10 Ratio (12-20); Bilirubin,Total 0.8 mg/dL (0.3-1.2); Blood Urea Nitrogen 10 mg/dL (9-23); Calcium 9.6 mg/dL (8.3-10.6); Calcium (Corrected) 9.6 mg/dL (8.5-10.1); Estimated Creatinine Clearance 106.8 mL/min (>60); Globulin 2.8 gm/dL (2.3-3.5); Glucose 114 mg/dL (74-106); Osmolality,Calculated 277 (275-295); Procalcitonin 0.05 ng/ml (0.0-0.49); Total Protein 7.7 gm/dL (5.7-8.2); eGFR > 60 See Note
[2024-09-19 23:40] LABS: Syphilis Nonreactive (Nonreactive)
--- NOTE | 2024-09-19 23:46 | XR_ITS ---
Examination: PA chest single view Technique: Upright PA chest single view Exam date and time: September 19, 2024, 2305 hrs. Indications: Fever today. Findings: Normal heart size Lungs are clear. The osseous structures are intact Impression: No active disease
== END 2024-09-20 00:45 | disposition home or self-care (01) ==
PROVIDERS: Physician Assistant; Emergency Provider Emergency Medicine
DX: F41.9 Anxiety disorder, unspecified (principal)
CPT/HCPCS: 36415; 71045; 80053; 83605; 84145; 85025; 86780; 87400; 99283; A9270

== ENCOUNTER 2024-11-02 08:23 | Emergency (ER) | payer MEDICAID, SELFPAY ==
[2024-11-02 08:41] VITALS: BP 139/85; PULSE 111; RESP 18; TEMP 37.1; O2SAT 96; BMI 27.0
--- NOTE | 2024-11-02 09:10 | PD.EDRME ---
Rapid Medical Screening Exam RME Arrival date/time: 11/02/24 08:23 This is a 29-year-old male that comes in with complaints of not feeling like he is there. Patient states he feels very confused. Patient states that he is able to figure out his surroundings but just feels confused. Patient states that he has been told he has anxiety but not sure if he states this diagnosis. Patient states he was taking medications but he is no longer taking them at this time. Patient denies any thoughts of hurting himself or any homicidal ideations. I have greeted and performed a focused initial assessment of this patient. Initial appropriate labs ordered at this time. A comprehensive ED assessment and evaluation of the patient and analysis of all test and completion of medical decision making process will be conducted by additional ED provider. Chief Complaint: Altered Mental Status Time Seen by Provider: 11/02/24 08:35 Vital signs: Vital Signs Temperature 98.7 F 11/02/24 08:41 Pulse Rate 111 H 11/02/24 08:41 Respiratory Rate 18 11/02/24 08:41 Blood Pressure 139/85 H 11/02/24 08:41 Pulse Oximetry (%) 96 11/02/24 08:41 Oxygen Delivery Method Room Air 11/02/24 08:41
[2024-11-02 09:59] LABS: Collection Type, Urine Pedi-Bag
[2024-11-02 10:01] LABS: Basophils % (Auto) 1 % (0-2.5); Eosinophils % (Auto) 0 % (0-10); Hematocrit 41.7 % (41.0-53.0); Hemoglobin 14.7 g/dL (13.5-16.0); Immature Granulocytes % (Auto) 0 % (0-0); Immature Granulocytes Auto 0.03 Thou/mm3 (0.00-0.00); Lymphocytes # (Auto) 1.2 Thou/mm3 (1.0-4.8); Lymphocytes % (Auto) 13 % (10-50); Mean Corpuscular HGB Conc 35.3 g/dl (31.0-37.0); Mean Corpuscular Hemoglobin 29.3 pg (25.0-35.0); Mean Corpuscular Volume 83 fL (80-100); Monocytes # (Auto) 0.5 Thou/mm3 (0.0-0.8); Monocytes % (Auto) 5 % (0-12); Neutrophils # (Auto) 7.1 Thou/mm3 (1.8-7.7); Neutrophils % (Auto) 81 % (37-80); Nucleated Red Blood Cell % 0 /100 WBC (0); Platelet Count 256 Thou/mm3 (140-440); RDW Standard Deviation 36.5 fL (35.1-43.9); Red Blood Count 5.02 Miln/mm3 (4.50-5.90); White Blood Count 8.8 Thou/mm3 (3.8-10.6)
[2024-11-02 10:30] LABS: Bilirubin,Urine Negative (Negative); Blood,Urine Negative (Negative); Clarity,Urine Clear (Clear/Hazy); Color,Urine Lt-Yellow (Lt Yel-Yel); Culture Indicated,Urine Not Indicated; Glucose, Urine Negative (Negative); Ketones,Urine Negative (Negative); Leukocyte Esterase,Urine Negative (Negative); Nitrite,Urine Negative (Negative); PH,Urine 5.5 (5.0-7.0); Protein,Urine Negative (Neg - Trace); RBC,Urine 1 /hpf (0-3); Specific Gravity,Urine 1.014 (1.001-1.035); Squamous Epithelial Cell,Urine < 1 /hpf (0-5); Urobilinogen,Urine Negative mg/dL (0.0-1.0); WBC,Urine 1 /hpf (0-5)
[2024-11-02 10:41] LABS: Amphetamine/Methamp Scrn,U Negative (Negative); Barbiturate Screen,Urine Negative (Negative); Benzodiazepines Screen,Urine Negative (Negative); Benzoylecgonine Screen, Ur Negative (Negative); Fentanyl Screen,Urine Negative (Negative); Opiate Screen,Urine Negative (Negative); THC Screen,Urine Negative (Negative)
[2024-11-02 11:03] LABS: Alanine Aminotransferase 20 U/L (10-49); Albumin, Serum 4.6 gm/dL (3.5-5.0); Albumin/Globulin Ratio 1.8 (1.2-2.2); Alcohol, Blood Medical < 3.0 mg/dL (0-10.0); Alkaline Phosphatase 70 U/L (46-116); Anion Gap 9 (7-16); Aspartate Amino Transferase 21 U/L (0-34); BUN/Creatinine Ratio 6 Ratio (12-20); Blood Urea Nitrogen 6 mg/dL (9-23); Calcium 9.3 mg/dL (8.3-10.6); Calcium (Corrected) 9.3 mg/dL (8.5-10.1); Carbon Dioxide 25.5 mMol/L (20.0-31.0); Chloride 105 mMol/L (98-107); Estimated Creatinine Clearance 107.4 mL/min (>60); Globulin 2.5 gm/dL (2.3-3.5); Glucose 115 mg/dL (74-106); Osmolality,Calculated 276 (275-295); Sodium 139 mMol/L (136-145); Total Protein 7.1 gm/dL (5.7-8.2); eGFR > 60 See Note
--- NOTE | 2024-11-02 11:31 | PC.NURSE ---
DIE DESIGNER APPRENTICE WITH PATIENT AT THIS TIME.
--- NOTE | 2024-11-02 11:51 | EDNOTE_ITS ---
Altered Mental Status RME/HPI General Chief Complaint: Altered Mental Status Stated Complaint: FEELING MORE CONFUSED TODAY Time Seen by Provider: 11/02/24 08:35 Arrival date/time: 11/02/24 08:23 This is a 29-year-old male that comes in with complaints of not feeling like he is there. Patient states he feels very confused. Patient states that he is able to figure out his surroundings but just feels confused. Patient states that he has been told he has anxiety but not sure if he states this diagnosis. Patient states he was taking medications but he is no longer taking them at this time. Patient denies any thoughts of hurting himself or any homicidal ideations. RME / HPI RME / HPI narrative: 11/02/24 08:23 This is a 29-year-old male that comes in with complaints of not feeling like he is there. Patient states he feels very confused. Patient states that he is able to figure out his surroundings but just feels confused. Patient states that he has been told he has anxiety but not sure if he states this diagnosis. Patient states he was taking medications but he is no longer taking them at this time. Patient denies any thoughts of hurting himself or any homicidal ideations. I have greeted and performed a focused initial assessment of this patient. Initial appropriate labs ordered at this time. A comprehensive ED assessment and evaluation of the patient and analysis of all test and completion of medical decision making process will be conducted by additional ED provider. Related Data Home Medications ?Medication ?Instructions ?Recorded ?Confirmed No Known Home Medications 07/08/22 0209/24 Allergies Allergy/AdvReac Type Severity Reaction Status Date / Time No Known Allergies Allergy Verified 11/02/24 08:25 Course Orders Category Date Time Status Consult Insulation And Flooring Assembler Care 11/02/24 09:08 Active Alcohol, Blood Medical Stat Lab 11/02/24 09:39 Completed CBC Stat Lab 11/02/24 09:39 Completed Comprehensive Metabolic Panel Stat Lab 11/02/24 09:39 Completed Drug Screen,Urine Stat Lab 11/02/24 09:00 Completed Urinalysis, C/S if Indicated Stat Lab 11/02/24 09:00 Completed Vital Signs Vital signs: Vital Signs Temperature 98.7 F 11/02/24 08:41 Pulse Rate 111 H 11/02/24 08:41 Respiratory Rate 18 11/02/24 08:41 Blood Pressure 139/85 H 11/02/24 08:41 Pulse Oximetry (%) 96 11/02/24 08:41 Oxygen Delivery Method Room Air 11/02/24 08:41 Discharge Plan Plan Patient Disposition: HOME (Self Care) Patient condition on transfer: Stable Prescriptions/Referrals Prescriptions/Med Rec: No Action No Known Home Medications Referrals: Karri Lamar FNP [Primary Care Provider] - In 1 week Problem List Clinical Impression: Anxiety Patient/Caregiver Discharge Instructions Discharge Activity: activity as tolerated Education Materials: ED Anxiety Reaction Additional Instructions: Please follow-up with mental health As discussed. Follow up with primary provider in 1-2 days. Come back to ED if symptoms change or worsen Print Language: Fijian Stand Alone Forms: Kitty Award Info., Patient Portal Info Letter MEGHAN/KAILEE Supervising Physician TRINA Supervising Physician: cydney
--- NOTE | 2024-11-02 12:12 | PC.CC ---
Home Health Care Worker engaged Pt in open conversation regarding MH and community resources. Pt was able to disclosed feeling anxiety/rapid heart beat. Pt disclosed he is connected to MH and also receiving psych services from [facility].
[2024-11-02] MEDS: DIAZEPAM 5 MG TABLET PO (12:13)
--- NOTE | 2024-11-02 12:16 | PC.NURSE ---
PT REFUSED MED. MED WAS WASTED
[2024-11-02 12:18] VITALS: BP 128/82; PULSE 97; RESP 16; TEMP 36.9; O2SAT 97
== END 2024-11-02 12:18 | disposition home or self-care (01) ==
PROVIDERS: Nurse Practitioner Family; Emergency Provider Emergency Medicine
DX: F41.9 Anxiety disorder, unspecified (principal)
CPT/HCPCS: 36415; 80053; 80307; 80320; 81001; 85025; 99283; A9270; G0480